=== PATIENT | male | born 1975 | race Caucasian/White ===

== ENCOUNTER → 2016-08-25 | Outpatient (CLI) | payer MEDICARE, MEDICAID ==
[~2016-08-25] MED LIST: ALBU17IN INH; CETI10TA PO; DEPA1TAB3 PO; DEPA250T32 PO; EFFE75CA75 PO; MONT10TA2 PO; NAPR500T2 PO; ROPI1TAB PO; VENL37TA PO
== END ==
LOC: M LAB 12:32
PROVIDERS: ATTEND Nurse Practitioner Family
DX: Z02.89 Encounter for other administrative examinations (principal)

== ENCOUNTER 2016-10-19 21:34 | Emergency (ER) | payer MEDICARE, MEDICAID ==
[~2016-10-19] VITALS: Ht 175.3 cm; Wt 109.1 kg
[~2016-10-19 21:34] MED LIST changes: -NAPR500T2 PO; +NAPR500T3 PO
[2016-10-19] MEDS ORDERED: IPRATROPIUM 0.5MG/ALBUTEROL 2.5MG INH SOL UD 3ML (DUONEB)(J7620) NEB ONE (22:00)
[2016-10-19] MEDS ORDERED: methylPREDNISolone INJ 125 MG/2 ML VIAL (J2930) IV ONE (22:00)
[2016-10-19] MEDS ORDERED: diphenhydrAMINE INJ 50MG/ML VIAL (J1200) IV ONE (22:00)
[2016-10-19] MEDS ORDERED: FAMOTIDINE IV BAG 20 MG in APPROPRIATE DILUENT 1 EA IV ONE (22:00)
[2016-10-19 23:36] VITALS: BP 140/76
[2016-10-19] MEDS ORDERED: PEPC1TAB4 PO (23:43)
[2016-10-19] MEDS ORDERED: PRED20TA PO (23:43)
--- NOTE | 2016-10-20 06:00 | ECGEPIP ---
Stationary ECG Study [facility] - ED Test Date: 2016-10-19 Pat Name: LINN MEDEL Department: Room: - Gender: M [employer] Supervisor: : 1975 Requested By: KASH Serrano PA-C Order Number: [id number] Reading MD: Adán De Luna Measurements Intervals [place] Rate: 90 P: 21 OK: 160 QRS: -19 QRSD: 85 T: 29 QT: 346 QTc: 424 Interpretive Statements SINUS RHYTHM Electronically Signed On 10-20-2016 6:00:14 EDT by Adán De Luna
--- NOTE | 2016-10-20 08:07 | REP ---
PA and lateral chest: Comparison is 11/18/2014. Lung gomez are clear. Cardiac size is upper normal. The kristine, mediastinum, and bony thorax are unremarkable. There is no interval change. Impression: Essentially negative PA and lateral chest. Signed by Julio César Hammond MD 10/20/2016 07:57 A
== END 2016-10-19 23:53 | disposition home or self-care (01) ==
LOC: M ED 21:34
DX: R06.02 Shortness of breath (principal); R05 Cough; T78.40XA Allergy, unspecified, initial encounter; X58.XXXA Exposure to other specified factors, initial encounter; Y92.009 Unspecified place in unspecified non-institutional (private) residence as the place of occurrence of the external cause; Z77.120 Contact with and (suspected) exposure to mold (toxic); J45.909 Unspecified asthma, uncomplicated; F32.9 Major depressive disorder, single episode, unspecified; F41.9 Anxiety disorder, unspecified; Z88.0 Allergy status to penicillin; Z88.8 Allergy status to other drugs, medicaments and biological substances; Z79.899 Other long term (current) drug therapy
CPT/HCPCS: 71020; 93005; 94640; 96374; 96375; 99283; J1200; J2930

== ENCOUNTER 2016-12-13 19:29 | Emergency (ER) | payer MEDICARE, MEDICAID ==
[~2016-12-13] VITALS: Ht 175.3 cm; Wt 109.0 kg
[~2016-12-13 19:29] MED LIST changes: +PEPC1TAB4 PO; +PRED20TA PO
[2016-12-13] MEDS ORDERED: FLUT1SPR2 INH (19:45)
[2016-12-13] MEDS ORDERED: DICY20TA11 PO (19:45)
[2016-12-13] MEDS ORDERED: AZIT-12 PO (19:45)
[2016-12-13] MEDS ORDERED: Compazine PO (19:45)
[2016-12-13] MEDS ORDERED: PRIL20CA9 PO (19:45)
[2016-12-13] MEDS ORDERED: SUMA100T2 PO (19:45)
[2016-12-13] MEDS ORDERED: VITA1CAP40 (19:45)
[2016-12-13] MEDS ORDERED: BUTACAP78 PO (19:45)
[2016-12-13] MEDS ORDERED: ONDANSETRON 4MG/2ML VIAL (J2405) IV ONE (21:00)
[2016-12-13] MEDS ORDERED: KETOROLAC 30 MG/ML VIAL (J1885) IV ONE (21:00)
[2016-12-13] MEDS ORDERED: NS 1,000 ML IV ONE (21:00)
[2016-12-13 21:46] LABS: BASO % 0.3 % (0.0-1.0); EOS # 0.1 10^3/uL (0.0-0.50); EOS % 0.4 % (0.0-3.0); IMMATURE GRANULOCYTE % 0.6 % (0-0); LYMPH # 0.9 10^3/uL (1.5-4.5); LYMPH % 6.6 % (24.0-44.0); MEAN CORPUSCULAR HEMOGLOBIN 29.3 pg (27.0-33.0); MEAN CORPUSCULAR HGB CONC 34.3 g/dl (32.0-36.5); MEAN CORPUSCULAR VOLUME 85.4 fl (80.0-96.0); MONO # 0.4 10^3/uL (0.0-0.8); MONO % 3.2 % (0.0-5.0); NEUTROPHILS # 12.1 10^3/uL (1.8-7.7); NEUTROPHILS % 88.9 % (36.0-66.0); PLATELET COUNT, AUTOMATED 225 10^3/uL (150-450); RED CELL DISTRIBUTION WIDTH 12.9 % (11.5-14.5); WHITE BLOOD COUNT 13.6 10^3/uL (4.0-10.0)
[2016-12-13 22:07] LABS: ALBUMIN 3.9 GM/DL (3.2-5.2); ALBUMIN/GLOBULIN RATIO 1.18 (1.00-1.93); ALKALINE PHOSPHATASE 88 U/L (45-117); ALT/SGPT 29 U/L (12-78); AMYLASE 33 U/L (25-115); ANION GAP 6 MEQ/L (8-16); AST/SGOT 15 U/L (15-37); BILIRUBIN,DIRECT 0.2 MG/DL (0.0-0.2); BILIRUBIN,TOTAL 0.6 MG/DL (0.2-1.0); BLOOD UREA NITROGEN 12 MG/DL (7-18); CALCIUM LEVEL 8.6 MG/DL (8.5-10.1); CARBON DIOXIDE LEVEL 29 MEQ/L (21-32); CHLORIDE LEVEL 106 MEQ/L (98-107); CREATININE FOR GFR 0.89 MG/DL (0.70-1.30); GLOMERULAR FILTRATION RATE > 60.0 (>60); GLUCOSE, FASTING 120 MG/DL (70-105); POTASSIUM SERUM 3.9 MEQ/L (3.5-5.1); SODIUM LEVEL 141 MEQ/L (136-145); TOTAL PROTEIN 7.2 GM/DL (6.4-8.2)
[2016-12-13 22:41] VITALS: BP 143/79
[2016-12-13] MEDS ORDERED: ZOFR20TA PO (22:54)
--- NOTE | 2016-12-14 08:04 | REP ---
The kilos series series including PA chest and supine upright abdomen: PA chest: Comparison is a 2016. Lung gomez are clear. Cardiac size is enlarged. The kristine, mediastinum, and bony thorax are unremarkable. There is no free subdiaphragmatic air. Impression: Cardiomegaly. Otherwise, negative PA chest. Abdomen, supine and upright views: There are no comparisons. The bowel gas pattern is normal. There are pelvic calcifications, likely phleboliths. The skeletal structures and soft tissues are unremarkable. Impression: Normal bowel gas pattern. Signed by Julio César Hammond MD 12/14/2016 07:55 A
== END 2016-12-13 23:10 | disposition home or self-care (01) ==
LOC: M ED 19:29
DX: K29.70 Gastritis, unspecified, without bleeding (principal); J45.909 Unspecified asthma, uncomplicated; Z79.51 Long term (current) use of inhaled steroids; Z79.899 Other long term (current) drug therapy; Z88.8 Allergy status to other drugs, medicaments and biological substances; Z88.0 Allergy status to penicillin; Z87.891 Personal history of nicotine dependence
CPT/HCPCS: 74022; 80048; 80076; 82150; 83690; 85025; 96361; 96374; 96375; 99283; J1885; J2405

== ENCOUNTER 2017-11-15 05:45 | Emergency (ER) | payer MEDICARE, MEDICAID ==
[2017-11-15] MEDS: NS 1,000 ML IV (08:09)
[2017-11-15] MEDS: METOCLOPRAMIDE INJ 10MG/2ML VIAL (J2765) IV (08:09)
[2017-11-15] MEDS: KETOROLAC 30 MG/ML VIAL (J1885) IV (08:09)
[2017-11-15 08:18] LABS: BASO % 0.2 % (0.0-1.0); EOS # 0.1 10^3/uL (0.0-0.50); EOS % 0.6 % (0.0-3.0); HEMATOCRIT 44.7 % (42.0-52.0); HEMOGLOBIN 15.4 g/dl (13.5-17.5); IMMATURE GRANULOCYTE % 0.5 % (0-3.0); LYMPH # 0.4 10^3/uL (1.5-4.5); LYMPH % 5.2 % (24.0-44.0); MEAN CORPUSCULAR HEMOGLOBIN 29.7 pg (27.0-33.0); MEAN CORPUSCULAR HGB CONC 34.5 g/dl (32.0-36.5); MEAN CORPUSCULAR VOLUME 86.1 fl (80.0-96.0); MONO # 0.4 10^3/uL (0.0-0.8); MONO % 5.3 % (0.0-5.0); NEUTROPHILS # 7.1 10^3/uL (1.8-7.7); NEUTROPHILS % 88.2 % (36.0-66.0); PLATELET COUNT, AUTOMATED 169 10^3/uL (150-450); RED BLOOD COUNT 5.19 10^6/uL (4.30-6.10); RED CELL DISTRIBUTION WIDTH 12.5 % (11.5-14.5); WHITE BLOOD COUNT 8.1 10^3/uL (4.0-10.0)
[2017-11-15 08:45] LABS: CPK CREATINE PHOSPHOKINASE 57 U/L (39-308)
[2017-11-15 09:17] LABS: ERYTHROCYTE SEDIMENTATION RATE 9 mm/hr (0-15)
[2017-11-15 10:17] LABS: ANION GAP 9 MEQ/L (8-16); BLOOD UREA NITROGEN 10 MG/DL (7-18); CALCIUM LEVEL 8.5 MG/DL (8.5-10.1); CARBON DIOXIDE LEVEL 25 MEQ/L (21-32); CHLORIDE LEVEL 106 MEQ/L (98-107); CREATININE FOR GFR 1.05 MG/DL (0.70-1.30); GLOMERULAR FILTRATION RATE > 60.0 (>60); GLUCOSE, FASTING 110 MG/DL (70-100); POTASSIUM SERUM 3.8 MEQ/L (3.5-5.1); SODIUM LEVEL 140 MEQ/L (136-145)
== END 2017-11-15 11:02 | disposition home or self-care (01) ==
LOC: M ED 05:45
DX: M25.50 Pain in unspecified joint (principal); R51 Headache; T50.B95A Adverse effect of other viral vaccines, initial encounter; G43.909 Migraine, unspecified, not intractable, without status migrainosus; K58.9 Irritable bowel syndrome, unspecified; J45.909 Unspecified asthma, uncomplicated; F41.9 Anxiety disorder, unspecified; F32.9 Major depressive disorder, single episode, unspecified; Z88.0 Allergy status to penicillin; Z88.5 Allergy status to narcotic agent; Z79.899 Other long term (current) drug therapy
CPT/HCPCS: J1885

== ENCOUNTER → 2017-12-22 | Outpatient (CLI) | payer MEDICARE, MEDICAID | LOC: M WUC 12:06 | DX: M19.012 Primary osteoarthritis, left shoulder (principal); M25.512 Pain in left shoulder | CPT/HCPCS: 73030 ==

== ENCOUNTER → 2018-05-24 | Outpatient (CLI) | payer MEDICARE, MEDICAID ==
[~2018-05-24] MED LIST changes: +ACET-683 PO; +AZIT-12 PO; +BUTACAP78 PO; +Compazine PO; +DICY20TA11 PO; +EFFE75CA2 PO; -EFFE75CA75 PO; +FLUT1SPR2 INH; +IBUP-1022 PO; +NAPR-885 PO; -NAPR500T3 PO; -PEPC1TAB4 PO; +PEPC1TAB5 PO; +PRIL20CA9 PO; +SUMA100T2 PO; +VITA50005; +ZOFR4TAB16 PO
[2018-05-24 10:24] LABS: BASO % 0.6 % (0.0-1.0); EOS # 0.3 10^3/uL (0.0-0.50); EOS % 4.7 % (0.0-3.0); HEMATOCRIT 45.9 % (42.0-52.0); HEMOGLOBIN 15.5 g/dl (13.5-17.5); LYMPH # 1.5 10^3/uL (1.5-4.5); LYMPH % 21.6 % (24.0-44.0); MEAN CORPUSCULAR HEMOGLOBIN 29.5 pg (27.0-33.0); MEAN CORPUSCULAR HGB CONC 33.8 g/dl (32.0-36.5); MEAN CORPUSCULAR VOLUME 87.3 fl (80.0-96.0); MONO # 0.4 10^3/uL (0.0-0.8); MONO % 5.5 % (0.0-5.0); NEUTROPHILS # 4.6 10^3/uL (1.8-7.7); NEUTROPHILS % 67.5 % (36.0-66.0); PLATELET COUNT, AUTOMATED 211 10^3/uL (150-450); RED BLOOD COUNT 5.26 10^6/uL (4.30-6.10); WHITE BLOOD COUNT 6.9 10^3/uL (4.0-10.0)
[2018-05-24 11:19] LABS: ALBUMIN 3.8 GM/DL (3.2-5.2); ALT/SGPT 44 U/L (12-78); BILIRUBIN,TOTAL 0.5 MG/DL (0.2-1.0); BLOOD UREA NITROGEN 18 MG/DL (7-18); CALCIUM LEVEL 8.6 MG/DL (8.5-10.1); CARBON DIOXIDE LEVEL 30 MEQ/L (21-32); CHLORIDE LEVEL 107 MEQ/L (98-107); CHOLESTEROL LEVEL 157 MG/DL (<200); CHOLESTEROL RISK RATIO 3.413 (<5); CREATININE FOR GFR 0.85 MG/DL (0.70-1.30); FREE T4 1.02 NG/DL (0.76-1.46); GLOMERULAR FILTRATION RATE > 60.0 (>60); GLUCOSE, FASTING 93 MG/DL (70-100); HDL CHOLESTEROL 46 MG/DL (>40); LDL CHOLESTEROL 86 MG/DL (<100); NON-HDL-C 111 MG/DL; POTASSIUM SERUM 4.4 MEQ/L (3.5-5.1); SODIUM LEVEL 141 MEQ/L (136-145); TOTAL PROTEIN 7.3 GM/DL (6.4-8.2); TRIGLYCERIDES LEVEL 124 MG/DL (<150)
== END ==
LOC: M LAB 09:44
PROVIDERS: ATTEND Family Medicine
DX: Z13.220 Encounter for screening for lipoid disorders (principal); Z13.21 Encounter for screening for nutritional disorder; Z13.29 Encounter for screening for other suspected endocrine disorder; M79.604 Pain in right leg

== ENCOUNTER → 2019-07-10 | Outpatient (CLI) | payer MEDICARE, MEDICAID ==
[~2019-07-10] MED LIST changes: -MONT10TA2 PO; +MONT10TA4 PO; -ROPI1TAB PO; +ROPI1TAB3 PO
== END ==
LOC: M LABSMTC 12:45
PROVIDERS: ATTEND Family Medicine
DX: Z11.59 Encounter for screening for other viral diseases (principal); Z20.828 Contact with and (suspected) exposure to other viral communicable diseases

== ENCOUNTER → 2019-08-16 | Outpatient (REF) | payer MEDICARE, MEDICAID ==
[2019-08-16 13:36] LABS: BASO # 0.1 10^3/uL (0.0-0.2); BASO % 0.7 % (0.0-1.0); EOS # 0.5 10^3/uL (0.0-0.5); EOS % 5.7 % (0.0-3.0); HEMATOCRIT 43.5 % (42.0-52.0); HEMOGLOBIN 14.9 g/dl (13.5-17.5); LYMPH # 1.8 10^3/uL (1.5-5.0); LYMPH % 21.4 % (24.0-44.0); MEAN CORPUSCULAR HEMOGLOBIN 29.7 pg (27.0-33.0); MEAN CORPUSCULAR HGB CONC 34.3 g/dl (32.0-36.5); MEAN CORPUSCULAR VOLUME 86.7 fl (80.0-96.0); MONO # 0.5 10^3/uL (0.0-0.8); MONO % 6.1 % (0.0-5.0); NEUTROPHILS # 5.5 10^3/uL (1.5-8.5); NEUTROPHILS % 65.6 % (36.0-66.0); PLATELET COUNT, AUTOMATED 211 10^3/uL (150-450); RED BLOOD COUNT 5.02 10^6/uL (4.30-6.10); WHITE BLOOD COUNT 8.4 10^3/uL (4.0-10.0)
[2019-08-16 14:17] LABS: ALBUMIN 3.8 GM/DL (3.2-5.2); ALT/SGPT 58 U/L (12-78); BILIRUBIN,TOTAL 0.5 MG/DL (0.2-1.0); BLOOD UREA NITROGEN 17 MG/DL (7-18); CARBON DIOXIDE LEVEL 26 MEQ/L (21-32); CHLORIDE LEVEL 108 MEQ/L (98-107); CHOLESTEROL LEVEL 189 MG/DL (<200); FREE T4 1.02 NG/DL (0.76-1.46); GLOMERULAR FILTRATION RATE > 60.0 (>60); GLUCOSE, FASTING 103 MG/DL (70-100); HDL CHOLESTEROL 50 MG/DL (>40); LDL CHOLESTEROL 116 MG/DL (<100); NON-HDL-C 139 MG/DL; POTASSIUM SERUM 4.1 MEQ/L (3.5-5.1); SODIUM LEVEL 140 MEQ/L (136-145); TOTAL PROTEIN 7.3 GM/DL (6.4-8.2); TRIGLYCERIDES LEVEL 115 MG/DL (<150)
[2019-08-16 14:18] LABS: TOTAL 25(OH) VITAMIN D 27.5 NG/ML (30.0-100.0)
== END ==
LOC: M LAB REF 12:43
PROVIDERS: ATTEND Physician Assistant
DX: Z00.01 Encounter for general adult medical examination with abnormal findings (principal); J30.2 Other seasonal allergic rhinitis; J45.20 Mild intermittent asthma, uncomplicated; F41.8 Other specified anxiety disorders; R06.83 Snoring; R53.83 Other fatigue; G25.81 Restless legs syndrome; Z68.37 Body mass index [BMI] 37.0-37.9, adult; E66.09 Other obesity due to excess calories

== ENCOUNTER 2019-10-01 15:10 | Emergency (ER) | payer MEDICARE, MEDICAID ==
[2019-10-28 14:13] LABS: BLOOD UREA NITROGEN 11 MG/DL (7-18); CALCIUM LEVEL 8.8 MG/DL (8.5-10.1); CARBON DIOXIDE LEVEL 26 MEQ/L (21-32); CHLORIDE LEVEL 110 MEQ/L (98-107); CREATININE FOR GFR 0.99 MG/DL (0.70-1.30); GLOMERULAR FILTRATION RATE > 60.0 (>60); GLUCOSE, FASTING 89 MG/DL (70-100); POTASSIUM SERUM 4.3 MEQ/L (3.5-5.1); SODIUM LEVEL 142 MEQ/L (136-145)
[2019-11-04 10:51] LABS: BASO % 0.5 % (0.0-1.0); EOS # 0.4 10^3/uL (0.0-0.5); EOS % 4.3 % (0.0-3.0); HEMATOCRIT 43.8 % (42.0-52.0); HEMOGLOBIN 14.9 g/dl (13.5-17.5); LYMPH # 1.3 10^3/uL (1.5-5.0); MEAN CORPUSCULAR HEMOGLOBIN 29.4 pg (27.0-33.0); MEAN CORPUSCULAR VOLUME 86.4 fl (80.0-96.0); MONO # 0.4 10^3/uL (0.0-0.8); MONO % 4.4 % (0.0-5.0); NEUTROPHILS # 6.5 10^3/uL (1.5-8.5); NEUTROPHILS % 75.3 % (36.0-66.0); PLATELET COUNT, AUTOMATED 189 10^3/uL (150-450); RED BLOOD COUNT 5.07 10^6/uL (4.30-6.10); WHITE BLOOD COUNT 8.6 10^3/uL (4.0-10.0)
--- NOTE | 2019-11-23 15:35 | REP ---
CT OF THE HEAD: HISTORY: Syncope and headache. TECHNIQUE: Axial noncontrast images from the skull base to the vertex with coronal reformations. FINDINGS: The ventricles, sulci and cisterns are symmetric and normal. Deng-white differentiation is maintained. No acute intracranial hemorrhage, mass or mass effect. No extra-axial fluid collection. The calvarium is intact. The paranasal sinuses and mastoid air cells are clear. IMPRESSION: Negative noncontrast head CT. No evidence for acute intracranial hemorrhage or pathology/trauma. MTDD
--- NOTE | 2019-11-23 16:05 | ECGEPIP ---
SINUS BRADYCARDIA BORDERLINE ECG LAD NONSPECIFIC ST & T CHANGE NO PRIOR DUE TO DOWNTIME SEE SCANNED DOWNTIME REPORT MTDD
[2019-12-12] MEDS ORDERED: ZALE10CA PO (13:40)
[2019-12-12] MEDS ORDERED: VITA1CHW7 PO (13:40)
[2019-12-12] MEDS ORDERED: sonata (13:40)
[2019-12-12] MEDS ORDERED: METH4PACK PO (13:40)
[2019-12-12] MEDS ORDERED: MECL12.589 PO (13:40)
[2019-12-12] MEDS ORDERED: VENTAER INH (13:40)
[2019-12-12] MEDS ORDERED: PANT40TA29 PO (13:40)
[2019-12-12] MEDS ORDERED: MOBI4TAB PO (13:40)
[2019-12-12] MEDS ORDERED: FLON1SPR (13:40)
== END 2019-10-01 15:46 | disposition home or self-care (01) ==
LOC: M ED 15:10
DX: I95.1 Orthostatic hypotension (principal); Z98.890 Other specified postprocedural states; Z88.0 Allergy status to penicillin; Z88.5 Allergy status to narcotic agent; Z79.899 Other long term (current) drug therapy; Z87.891 Personal history of nicotine dependence

== ENCOUNTER → 2019-10-23 | Outpatient (CLI) | payer MEDICARE, MEDICAID ==
[~2019-10-23] MED LIST changes: +E-Z-GAS II EFFERVESCENT PACKET (SODIUM BICARB./CITRIC ACID/SIMETHICONE) As Ordered ONE; +E-Z-HD 98% w/w 340GM SUSP BTL As Ordered ONE; +E-Z-PAQUE 96% w/w SUSP 176GM BTL As Ordered ONE; +FLON1SPR; +MECL12.589 PO; +METH4PACK PO; +MOBI4TAB PO; +PANT40TA29 PO; +VENTAER INH; +VITA1CHW7 PO; +ZALE10CA PO; +sonata
--- NOTE | 2019-11-29 09:50 | REP ---
AIR CONTRAST ESOPHAGRAM The procedure was performed under the direct supervision of Dr. Souza. The images were reviewed with Dr. Souza. A single view PA chest x-ray is submitted as a ammonium nitrate neutralizer film. The superior mediastinal structures are midline. The heart size is within normal limits. The lungs are clear. Liquid barium and gas-producing granules are given in the erect position, as well as liquid barium in the prone oblique position in order to perform a double-contrast esophagram examination. The oral and pharyngeal states of deglutition are unremarkable. Esophageal transport is prompt and efficient and there is no esophagitis, stricture, or mucosal ring. There is a sliding type hiatal hernia. Gastroesophageal reflux is not demonstrated on this examination. IMPRESSION: There is a sliding type hiatal hernia. Otherwise, unremarkable double-contrast esophagram examination. 0.7 minutes of fluoroscopy time was utilized for this procedure. [facility]
== END ==
LOC: M RAD 08:30
PROVIDERS: ATTEND Surgery
DX: R13.10 Dysphagia, unspecified (principal); K44.9 Diaphragmatic hernia without obstruction or gangrene

== ENCOUNTER 2019-12-03 10:27 | Outpatient (RCR) | payer MEDICARE, MEDICAID ==
[~2019-12-03 10:27] MED LIST changes: -E-Z-GAS II EFFERVESCENT PACKET (SODIUM BICARB./CITRIC ACID/SIMETHICONE) As Ordered ONE; -E-Z-HD 98% w/w 340GM SUSP BTL As Ordered ONE; -E-Z-PAQUE 96% w/w SUSP 176GM BTL As Ordered ONE; -FLON1SPR; -MECL12.589 PO; -METH4PACK PO; -MOBI4TAB PO; -PANT40TA29 PO; -VENTAER INH; -VITA1CHW7 PO; -ZALE10CA PO; -sonata
[2019-12-12] MEDS ORDERED: MECL12.589 PO (13:40)
[2019-12-12] MEDS ORDERED: METH4PACK PO (13:40)
[2019-12-12] MEDS ORDERED: ZALE10CA PO (13:40)
[2019-12-12] MEDS ORDERED: MOBI4TAB PO (13:40)
[2019-12-12] MEDS ORDERED: FLON1SPR (13:40)
[2019-12-12] MEDS ORDERED: PANT40TA29 PO (13:40)
[2019-12-12] MEDS ORDERED: sonata (13:40)
[2019-12-12] MEDS ORDERED: VENTAER INH (13:40)
[2019-12-12] MEDS ORDERED: VITA1CHW7 PO (13:40)
== END 2019-12-05 | disposition home or self-care (01) ==
LOC: M PT 10:27
PROVIDERS: ATTEND Physician Assistant
DX: M76.31 Iliotibial band syndrome, right leg (principal)

== ENCOUNTER → 2019-12-05 | Outpatient (REF) | payer MEDICARE, MEDICAID ==
[~2019-12-05] MED LIST changes: +FLON1SPR; +MECL12.589 PO; +METH4PACK PO; +MOBI4TAB PO; +PANT40TA29 PO; +VENTAER INH; +VITA1CHW7 PO; +ZALE10CA PO; +sonata
[2019-12-05 14:17] LABS: ALBUMIN 3.9 GM/DL (3.2-5.2); ALT/SGPT 57 U/L (12-78); BILIRUBIN,TOTAL 0.5 MG/DL (0.2-1.0); BLOOD UREA NITROGEN 16 MG/DL (7-18); CALCIUM LEVEL 9.3 MG/DL (8.5-10.1); CARBON DIOXIDE LEVEL 25 MEQ/L (21-32); CHLORIDE LEVEL 106 MEQ/L (98-107); CHOLESTEROL LEVEL 179 MG/DL (<200); CHOLESTEROL RISK RATIO 4.068 (<5); CREATININE FOR GFR 1.07 MG/DL (0.70-1.30); GLOMERULAR FILTRATION RATE > 60.0 (>60); GLUCOSE, FASTING 99 MG/DL (70-100); HDL CHOLESTEROL 44 MG/DL (>40); LDL CHOLESTEROL 99 MG/DL (<100); NON-HDL-C 135 MG/DL; POTASSIUM SERUM 4.4 MEQ/L (3.5-5.1); SODIUM LEVEL 139 MEQ/L (136-145); TOTAL PROTEIN 7.6 GM/DL (6.4-8.2); TRIGLYCERIDES LEVEL 180 MG/DL (<150)
[2019-12-05 15:17] LABS: HEMOGLOBIN A1c 5.2 %
== END ==
LOC: M LAB REF 12:39
PROVIDERS: ATTEND Physician Assistant
DX: R73.01 Impaired fasting glucose (principal); R07.9 Chest pain, unspecified; K64.4 Residual hemorrhoidal skin tags; E78.00 Pure hypercholesterolemia, unspecified; Z91.14 Patient's other noncompliance with medication regimen

== ENCOUNTER → 2019-12-15 | Outpatient (CLI) | payer MEDICARE, MEDICAID | LOC: M LABSMTC 09:58 | PROVIDERS: ATTEND Anesthesiology | DX: Z01.812 Encounter for preprocedural laboratory examination (principal); Z20.828 Contact with and (suspected) exposure to other viral communicable diseases | CPT/HCPCS: C9803; U0003 ==

== ENCOUNTER 2019-12-20 12:06 | Day surgery (SDC) | payer MEDICARE, MEDICAID ==
[~2019-12-20] VITALS: Ht 175.3 cm; Wt 116.3 kg
[~2019-12-20 12:06] MED LIST changes: +NS 1,000 ML IV ONE
[2019-12-20] MEDS ORDERED: ALBUTEROL SULFATE 2.5 MG/0.5 ML INH NEB SOLN As Ordered ONE (12:50)
[2019-12-20] MEDS ORDERED: ALBUTEROL SULFATE 2.5 MG/0.5 ML INH NEB SOLN INH ONE (13:00)
[2019-12-20] MEDS ORDERED: propofoL 200 MG/20 ML VIAL As Ordered ONE (13:45)
[2019-12-20] MEDS ORDERED: LIDOCAINE 2% 100MG/5ML SDV (FOR ANES.) As Ordered ONE (13:45)
[2019-12-20] MEDS ORDERED: fentaNYL 100 MCG/2 ML INJECTION (J3010) As Ordered ONE (13:47)
--- NOTE | 2019-12-20 14:01 | ROOR ---
Patient Name: Jose Rodrigues Procedure Date: 12/20/2019 1:43 PM Date of : 1975 Age: 44 Room: [facility] Gender: Male Note Status: Finalized Procedure: Upper GI endoscopy Indications: Dysphagia Providers: Dex Ireland Jr, MD Referring MD: MARI Reyez Requesting Provider: Medicines: Propofol per Anesthesia Complications: No immediate complications. Procedure: Pre-Anesthesia Assessment: - Prior to the procedure, a History and Physical was performed, and patient medications and allergies were reviewed. The patient is competent. The risks and benefits of the procedure and the sedation options and risks were discussed with the patient. All questions were answered and informed consent was obtained. Patient identification and proposed procedure were verified by the physician and the nurse in the pre-procedure area and in the procedure room. Mental Status Examination: alert and oriented. Airway Examination: normal oropharyngeal airway and neck mobility. Respiratory Examination: clear to auscultation. CV Examination: normal. ASA Grade Assessment: II - A patient with mild systemic disease. After reviewing the risks and benefits, the patient was deemed in satisfactory condition to undergo the procedure. The anesthesia plan was to use moderate sedation / analgesia (conscious sedation). Immediately prior to administration of medications, the patient was re-assessed for adequacy to receive sedatives. The heart rate, respiratory rate, oxygen saturations, blood pressure, adequacy of pulmonary ventilation, and response to care were monitored throughout the procedure. The physical status of the patient was re-assessed after the procedure. The Endoscope was introduced through the mouth, and advanced to the second part of duodenum. The upper GI endoscopy was accomplished without difficulty. The patient tolerated the procedure well. Findings: The upper third of the esophagus, middle third of the esophagus and lower third of the esophagus were normal. Non-severe esophagitis with no bleeding was found at the gastroesophageal junction. Biopsies were taken with a cold forceps for histology. The duodenal bulb, first portion of the duodenum and second portion of the duodenum were normal. The cardia, gastric fundus, gastric body, gastric antrum, prepyloric region of the stomach and pylorus were normal. Impression: - Normal upper third of esophagus, middle third of esophagus and lower third of esophagus. - Non-severe reflux esophagitis. Biopsied. - Normal duodenal bulb, first portion of the duodenum and second portion of the duodenum. - Normal cardia, gastric fundus, gastric body, antrum, prepyloric region of the stomach and pylorus. Recommendation: - Discharge patient to home (ambulatory). - Return to my office in 2 weeks. Dex Ireland MD Dex Ireland Jr, MD 12/20/2019 2:01:06 PM Electronically signed by Dex Ireland Jr, MD Number of Addenda: 0 Note Initiated On: 12/20/2019 1:43 PM Estimated Blood Loss: Estimated blood loss: none.
[2019-12-20 14:15] VITALS: BP 133/76
== END 2019-12-20 15:10 | disposition home or self-care (01) ==
LOC: M OPP 12:06
PROVIDERS: ATTEND Surgery
DX: K21.00 Gastro-esophageal reflux disease with esophagitis, without bleeding (principal); R13.10 Dysphagia, unspecified; Z79.899 Other long term (current) drug therapy; Z88.0 Allergy status to penicillin; Z88.5 Allergy status to narcotic agent; Z87.891 Personal history of nicotine dependence
CPT/HCPCS: 43239; 88305; J3010

== ENCOUNTER 2020-01-04 11:15 | Outpatient (RCR) | payer MEDICARE, MEDICAID ==
[~2020-01-04 11:15] MED LIST changes: -NS 1,000 ML IV ONE
== END 2020-01-05 ==
LOC: M PT 11:15
PROVIDERS: ATTEND Physician Assistant
DX: Z51.89 Encounter for other specified aftercare (principal); M76.31 Iliotibial band syndrome, right leg

== ENCOUNTER → 2020-07-16 | Outpatient (REF) | payer MEDICARE, MEDICAID ==
[~2020-07-16] MED LIST changes: +MECL-136 PO; -MECL12.589 PO; +MONT10TA10 PO; -MONT10TA4 PO
[2020-07-16 16:19] LABS: BASO # 0.1 10^3/uL (0.0-0.2); BASO % 0.7 % (0.0-1.0); EOS # 0.3 10^3/uL (0.0-0.5); EOS % 3.6 % (0.0-3.0); HEMATOCRIT 44.2 % (42.0-52.0); HEMOGLOBIN 14.8 g/dl (13.5-17.5); LYMPH # 1.4 10^3/uL (1.5-5.0); LYMPH % 18.9 % (24.0-44.0); MEAN CORPUSCULAR HGB CONC 33.5 g/dl (32.0-36.5); MEAN CORPUSCULAR VOLUME 86.5 fl (80.0-96.0); MONO # 0.4 10^3/uL (0.0-0.8); MONO % 4.9 % (2.0-8.0); NEUTROPHILS # 5.4 10^3/uL (1.5-8.5); NEUTROPHILS % 71.4 % (36.0-66.0); PLATELET COUNT, AUTOMATED 195 10^3/uL (150-450); RED BLOOD COUNT 5.11 10^6/uL (4.30-6.10); WHITE BLOOD COUNT 7.5 10^3/uL (4.0-10.0)
[2020-07-16 16:52] LABS: ALBUMIN 3.9 GM/DL (3.2-5.2); ALT/SGPT 85 U/L (12-78); BILIRUBIN,TOTAL 0.4 MG/DL (0.2-1.0); BLOOD UREA NITROGEN 13 MG/DL (7-18); CARBON DIOXIDE LEVEL 28 MEQ/L (21-32); CHLORIDE LEVEL 109 MEQ/L (98-107); CHOLESTEROL LEVEL 182 MG/DL (<200); CHOLESTEROL RISK RATIO 3.872 (<5); CREATININE FOR GFR 0.95 MG/DL (0.70-1.30); FREE T4 0.94 NG/DL (0.76-1.46); GLOMERULAR FILTRATION RATE > 60.0 (>60); GLUCOSE, FASTING 98 MG/DL (70-100); HDL CHOLESTEROL 47 MG/DL (>40); LDL CHOLESTEROL 98 MG/DL (<100); NON-HDL-C 135 MG/DL; POTASSIUM SERUM 4.3 MEQ/L (3.5-5.1); SODIUM LEVEL 142 MEQ/L (136-145); TOTAL PROTEIN 7.1 GM/DL (6.4-8.2); TRIGLYCERIDES LEVEL 186 MG/DL (<150)
[2020-07-16 16:55] LABS: TOTAL 25(OH) VITAMIN D 19.8 NG/ML (30.0-100.0)
[2020-07-16 17:05] LABS: HEMOGLOBIN A1c 5.6 %
== END ==
LOC: M LAB REF 15:48
PROVIDERS: ATTEND Physician Assistant
DX: E78.00 Pure hypercholesterolemia, unspecified (principal); E55.9 Vitamin D deficiency, unspecified; R53.83 Other fatigue; N52.9 Male erectile dysfunction, unspecified; E66.9 Obesity, unspecified

== ENCOUNTER → 2020-10-20 | Outpatient (CLI) | payer MEDICARE, MEDICAID ==
--- NOTE | 2020-10-20 11:34 | REP ---
INDICATION: UNSPECIFIED ASTHMA, LABS 1ST, XRY 2ND. COMPARISON: Multiple the latest prior frontal view the chest of 12/13/2016 TECHNIQUE: PA and lateral FINDINGS: There is cardiomegaly status quo. Lung gomez are clear. No acute patchy parenchymal opacities or pleural effusions have developed. The osseous structures are within normal limits. IMPRESSION: Cardiomegaly without evidence of acute cardiopulmonary disease. <Electronically signed by Frantz López > 10/20/20 [id number]
== END ==
LOC: M RAD 10:00
PROVIDERS: ATTEND Nurse Practitioner Adult Health
DX: I51.7 Cardiomegaly (principal); J45.909 Unspecified asthma, uncomplicated

== ENCOUNTER → 2020-10-20 | Outpatient (CLI) | payer MEDICARE, MEDICAID ==
[2020-10-20 11:29] LABS: FOLLICLE STIMULATING HORMONE 0.7 mIU/mL (1.4-18.1); LUTEINIZING HORMONE 2.1 mIU/mL (1.5-9.3); PROLACTIN 3.6 NG/ML (2.1-17.7)
[2020-10-21 18:09] LABS: SEX HORMONE BINDING GLOBULIN 27.7 nmol/L (16.5-55.9); TESTOSTERONE FREE (DIRECT) 6.2 pg/mL (6.8-21.5)
== END ==
LOC: M LAB 09:56
PROVIDERS: ATTEND Urology
DX: R79.89 Other specified abnormal findings of blood chemistry (principal); N52.9 Male erectile dysfunction, unspecified

== ENCOUNTER → 2020-10-30 | Outpatient (CLI) | payer MEDICARE, MEDICAID ==
--- NOTE | 2020-11-02 19:45 | SLEEPCENT ---
DATE: 10/30/2020 ORDERED BY: Nancy Madera NP Nocturnal polysomnography was performed for evaluation of sleep physiology in this patient with a history of excessive somnolence and nonrestorative sleep. Seven hours and 6 minutes of data were reviewed. There were 334 minutes of sleep identified. Sleep latency was prolonged at 62.5 minutes. REM latency was normal at 50.5 minutes. Sleep architecture was fair with an overall sleep efficiency of 79.2%. There were four REM cycles noted. The electrocardiogram showed a sinus rhythm with an average heart rate of 60 beats per minute. EEG showed normal waveforms for wake and sleep. There were 47 respiratory events identified of 10 seconds in duration or greater for an apnea-hypopnea index of 8.4. The events were obstructive, not exclusive to sleep stage nor body position. Arousals from respiratory events occurred 4.3 times per hour, and oxygen desaturations were seen into the 70s. There was some minor limb activity noted. Two trains of 30 events but the limb movement arousal index was only 5.4. IMPRESSIONS: Obstructive sleep apnea syndrome (G47.33). Apnea-hypopnea index 8.4. RECOMMENDATION: The patient should be encouraged to return to [facility] for [facility]. In the interim, alcohol and sedative avoidance should be practiced and caution exercised during the operation of motor vehicles. cc: Brandy Arcos
== END ==
LOC: M SLEEP 20:00
PROVIDERS: ATTEND Nurse Practitioner Adult Health
DX: G47.33 Obstructive sleep apnea (adult) (pediatric) (principal)

== ENCOUNTER 2021-01-28 08:04 | Outpatient (CLI) | payer MEDICARE, MEDICAID ==
[~2021-01-28] VITALS: Ht 175.3 cm; Wt 118.2 kg
[~2021-01-28 08:04] MED LIST changes: +ALBUTEROL 90 MCG/ACT 8GM HFA INHALER INH PRN; +ALBUTEROL SULFATE 2.5 MG/0.5 ML INH NEB SOLN INH PRN; -DICY20TA11 PO; +DICY20TA20 PO; +EPINEPHrine INJ 1 MG/ML 1ML AMP IM PRN; -MONT10TA10 PO; +MONT10TA97 PO; +NS 1,000 ML IV SCH; +diphenhydrAMINE 50MG/ML VIAL (J1200) IV PRN; +methylPREDNISolone 125MG 2ML VIAL IV PRN
[2021-01-28] MEDS ORDERED: ACETAMINOPHEN TAB 650MG DOSE (2X325MG) PO ONE (08:30)
[2021-01-28] MEDS ORDERED: CASIRIVIMAB (REGN10933) 600 MG, IMDEVIMAB (REGN10987) 600 MG in NS 250 ML IV ONE (08:30)
[2021-01-28 08:34] VITALS: BP 152/85
[2021-01-28 09:04] VITALS: BP 137/72
[2021-01-28 09:34] VITALS: BP 127/64
[2021-01-28 10:34] VITALS: BP 132/72
== END 2021-01-28 10:34 | disposition home or self-care (01) ==
LOC: M OPCLI4PR 08:04
PROVIDERS: ATTEND Physician Assistant
DX: U07.1 COVID-19 (principal); Z88.0 Allergy status to penicillin; Z88.8 Allergy status to other drugs, medicaments and biological substances

== ENCOUNTER → 2021-02-09 | Outpatient (CLI) | payer MEDICARE, MEDICAID ==
[~2021-02-09] MED LIST changes: -ALBUTEROL 90 MCG/ACT 8GM HFA INHALER INH PRN; -ALBUTEROL SULFATE 2.5 MG/0.5 ML INH NEB SOLN INH PRN; +DICY20TA11 PO; -DICY20TA20 PO; -EPINEPHrine INJ 1 MG/ML 1ML AMP IM PRN; +MONT10TA10 PO; -MONT10TA97 PO; -NS 1,000 ML IV SCH; -diphenhydrAMINE 50MG/ML VIAL (J1200) IV PRN; -methylPREDNISolone 125MG 2ML VIAL IV PRN
--- NOTE | 2021-02-09 12:08 | REP ---
INDICATION: SHORTNESS OF BREATH COMPARISON: 10/20/2020. TECHNIQUE: PA/Lateral FINDINGS: Lungs: Clear, no infiltrate. Heart: There is mild cardiomegaly. Mediastinum: Mediastinal silhouette unremarkable. Pleural angles: Unremarkable.. Bones and soft tissues: Unremarkable. IMPRESSION: No acute pulmonary disease. <Electronically signed by Julio César Deng > 02/09/21 [id number]
== END ==
LOC: M RAD 11:30
PROVIDERS: ATTEND Nurse Practitioner Adult Health
DX: R06.02 Shortness of breath (principal)

== ENCOUNTER → 2021-04-13 | Outpatient (CLI) | payer MEDICARE, MEDICAID ==
[~2021-04-13] MED LIST changes: -DICY20TA11 PO; +DICY20TA20 PO; +ISOVUE-370 76% 100ML VIAL ONE; -MONT10TA10 PO; +MONT10TA97 PO
== END ==
LOC: M PLAIMG 09:54
PROVIDERS: ATTEND Physician Assistant
DX: R79.89 Other specified abnormal findings of blood chemistry (principal)
CPT/HCPCS: 70460; Q9967

== ENCOUNTER → 2021-07-22 | Outpatient (CLI) | payer MEDICARE, MEDICAID ==
[~2021-07-22] MED LIST changes: -ISOVUE-370 76% 100ML VIAL ONE
[2021-07-23 19:09] LABS: TESTOSTERONE FREE (DIRECT) 3.6 pg/mL (6.8-21.5)
== END ==
LOC: M LAB 07:56
PROVIDERS: ATTEND Urology
DX: R79.89 Other specified abnormal findings of blood chemistry (principal)
CPT/HCPCS: 36415; 84402; 84403; G0103

== ENCOUNTER → 2021-10-30 | Outpatient (CLI) | payer MEDICARE, MEDICAID ==
[2021-10-30 11:11] LABS: TOTAL 25(OH) VITAMIN D 21.2 NG/ML (30.0-100.0)
== END ==
LOC: M LAB 09:07
PROVIDERS: ATTEND Physician Assistant
DX: E78.00 Pure hypercholesterolemia, unspecified (principal); E55.9 Vitamin D deficiency, unspecified; Z79.51 Long term (current) use of inhaled steroids; Z79.1 Long term (current) use of non-steroidal anti-inflammatories (NSAID); Z79.899 Other long term (current) drug therapy

== ENCOUNTER → 2021-10-30 | Outpatient (CLI) | payer MEDICARE, MEDICAID ==
[2021-10-30 10:10] LABS: HEMATOCRIT 41.3 % (42.0-52.0); HEMOGLOBIN 14.1 g/dl (13.5-17.5); MEAN CORPUSCULAR HEMOGLOBIN 29.1 pg (27.0-33.0); MEAN CORPUSCULAR HGB CONC 34.1 g/dl (32.0-36.5); MEAN CORPUSCULAR VOLUME 85.3 fl (80.0-96.0); PLATELET COUNT, AUTOMATED 204 10^3/uL (150-450); RED BLOOD COUNT 4.84 10^6/uL (4.30-6.10); WHITE BLOOD COUNT 8.5 10^3/uL (4.0-10.0)
[2021-10-30 10:49] LABS: ALBUMIN 3.7 GM/DL (3.2-5.2); ALT/SGPT 44 U/L (12-78); BILIRUBIN,TOTAL 0.3 MG/DL (0.2-1.0); BLOOD UREA NITROGEN 15 MG/DL (7-18); CALCIUM LEVEL 9.1 MG/DL (8.5-10.1); CARBON DIOXIDE LEVEL 27 MEQ/L (21-32); CHLORIDE LEVEL 106 MEQ/L (98-107); CREATININE FOR GFR 0.89 MG/DL (0.70-1.30); GLOMERULAR FILTRATION RATE > 60.0 (>60); GLUCOSE, FASTING 104 MG/DL (70-100); POTASSIUM SERUM 3.7 MEQ/L (3.5-5.1); SODIUM LEVEL 137 MEQ/L (136-145); TOTAL PROTEIN 7.5 GM/DL (6.4-8.2)
[2021-10-31 19:07] LABS: TESTOSTERONE FREE (DIRECT) 7.2 pg/mL (6.8-21.5)
== END ==
LOC: M LAB 09:14
PROVIDERS: ATTEND Urology
DX: R79.89 Other specified abnormal findings of blood chemistry (principal); E78.00 Pure hypercholesterolemia, unspecified; E55.9 Vitamin D deficiency, unspecified; Z79.51 Long term (current) use of inhaled steroids; Z79.1 Long term (current) use of non-steroidal anti-inflammatories (NSAID); Z79.899 Other long term (current) drug therapy

== ENCOUNTER → 2021-12-28 | Outpatient (REF) | payer MEDICARE, MEDICAID | LOC: M LAB REF 17:22 | PROVIDERS: ATTEND Physician Assistant | DX: L91.8 Other hypertrophic disorders of the skin (principal); R20.9 Unspecified disturbances of skin sensation ==

== ENCOUNTER → 2022-01-01 | Outpatient (CLI) | payer MEDICARE, MEDICAID | LOC: M SLEEP 20:00 | PROVIDERS: ATTEND Nurse Practitioner Adult Health | DX: G47.33 Obstructive sleep apnea (adult) (pediatric) (principal) ==

== ENCOUNTER 2022-01-26 12:43 | Emergency (ER) | payer MEDICARE, MEDICAID ==
[~2022-01-26] VITALS: Ht 175.3 cm; Wt 89.5 kg
[2022-01-26 12:44] VITALS: BP 140/80
[2022-01-26] MEDS ORDERED: SUMA25TA3 (13:29)
[2022-01-26] MEDS ORDERED: TEST1.62 (13:29)
== END 2022-01-26 14:52 | disposition left against medical advice (07) ==
LOC: M ED 12:43
DX: Z53.21 Procedure and treatment not carried out due to patient leaving prior to being seen by health care provider (principal)

== ENCOUNTER → 2022-01-27 | Outpatient (CLI) | payer MEDICARE, MEDICAID ==
[~2022-01-27] MED LIST changes: +SUMA25TA3; +TEST1.62
[2022-01-27 09:46] LABS: HEMATOCRIT 44.8 % (42.0-52.0); HEMOGLOBIN 14.7 g/dl (13.5-17.5); MEAN CORPUSCULAR HEMOGLOBIN 28.7 pg (27.0-33.0); MEAN CORPUSCULAR HGB CONC 32.8 g/dl (32.0-36.5); MEAN CORPUSCULAR VOLUME 87.3 fl (80.0-96.0); PLATELET COUNT, AUTOMATED 229 10^3/uL (150-450); RED BLOOD COUNT 5.13 10^6/uL (4.30-6.10); WHITE BLOOD COUNT 9.1 10^3/uL (4.0-10.0)
[2022-01-27 11:09] LABS: ALBUMIN 3.9 G/DL (3.2-5.2); ALT/SGPT 45 U/L (7.0-40); BILIRUBIN,TOTAL 0.6 MG/DL (0.3-1.2); BLOOD UREA NITROGEN 13 MG/DL (9-23); CALCIUM LEVEL 9.3 MG/DL (8.5-10.1); CARBON DIOXIDE LEVEL 27 MMOL/L (20-31); CHLORIDE LEVEL 104 MMOL/L (98-107); CREATININE FOR GFR 1.02 MG/DL (0.70-1.30); GLOMERULAR FILTRATION RATE > 60.0 (>60); GLUCOSE, FASTING 105 MG/DL (60-100); POTASSIUM SERUM 4.6 MMOL/L (3.5-5.1); SODIUM LEVEL 140 MMOL/L (136-145); TOTAL PROTEIN 7.2 G/DL (5.7-8.2)
[2022-01-29 16:12] LABS: TESTOSTERONE FREE (DIRECT) 6.7 pg/mL (6.8-21.5)
== END ==
LOC: M LAB 08:58
PROVIDERS: ATTEND Urology
DX: R79.89 Other specified abnormal findings of blood chemistry (principal)

== ENCOUNTER → 2022-03-17 | Outpatient (CLI) | payer MEDICARE, MEDICAID | LOC: M LABSMTC 11:32 | PROVIDERS: ATTEND Anesthesiology | DX: Z01.818 Encounter for other preprocedural examination (principal); Z11.52 Encounter for screening for COVID-19 ==

== ENCOUNTER → 2022-03-25 | Outpatient (CLI) | payer MEDICARE, MEDICAID | LOC: M LABSMTC 09:25 | PROVIDERS: ATTEND Anesthesiology | DX: Z01.812 Encounter for preprocedural laboratory examination (principal); Z11.52 Encounter for screening for COVID-19 ==

== ENCOUNTER 2022-03-30 09:10 | Day surgery (SDC) | payer MEDICARE, MEDICAID ==
[~2022-03-30] VITALS: Ht 175.3 cm; Wt 118.4 kg
[~2022-03-30 09:10] MED LIST changes: +NS 1,000 ML IV ONE
[2022-03-30] MEDS ORDERED: propofoL 200 MG/20 ML VIAL As Ordered ONE ×2 (10:50→11:09)
[2022-03-30] MEDS ORDERED: LIDOCAINE 2% 100MG/5ML SDV (FOR ANES.) As Ordered ONE (10:50)
[2022-03-30 11:45] VITALS: BP 133/78
== END 2022-03-30 11:55 | disposition home or self-care (01) ==
LOC: M OPP 09:10
PROVIDERS: ATTEND Internal Medicine Gastroenterology
DX: D12.6 Benign neoplasm of colon, unspecified (principal); K64.4 Residual hemorrhoidal skin tags; K64.8 Other hemorrhoids; K92.1 Melena; Z79.51 Long term (current) use of inhaled steroids; Z79.52 Long term (current) use of systemic steroids; Z79.899 Other long term (current) drug therapy; Z99.89 Dependence on other enabling machines and devices; Z80.0 Family history of malignant neoplasm of digestive organs; Z88.5 Allergy status to narcotic agent; G47.33 Obstructive sleep apnea (adult) (pediatric); G43.909 Migraine, unspecified, not intractable, without status migrainosus; J45.909 Unspecified asthma, uncomplicated

== ENCOUNTER → 2022-05-21 | Outpatient (CLI) | payer MEDICARE, MEDICAID ==
[~2022-05-21] MED LIST changes: +ADV500INH INH; +ALBU8.5H INH; +AMLO1TAB24 PO; +ASPI81TA26 PO; +FLUTISP; +INCR1INH INH; +MECL-86 PO; +METR0.7526 TOP; -NS 1,000 ML IV ONE; +NYST1POW9 TOP; +OMEP-173 PO; +RISATAB3 PO; +SUMA25TA3 PO; +VITA100093 PO; +VITMTA PO
== END ==
LOC: M LAB 09:11
PROVIDERS: ATTEND Physician Assistant
DX: E55.9 Vitamin D deficiency, unspecified (principal)

== ENCOUNTER → 2022-05-21 | Outpatient (CLI) | payer MEDICARE, MEDICAID ==
[~2022-05-21] MED LIST changes: -ADV500INH INH; -ALBU8.5H INH; -AMLO1TAB24 PO; -ASPI81TA26 PO; -FLUTISP; -INCR1INH INH; -MECL-86 PO; -METR0.7526 TOP; -NYST1POW9 TOP; -OMEP-173 PO; -RISATAB3 PO; -SUMA25TA3 PO; -VITA100093 PO; -VITMTA PO
[2022-05-21 10:38] LABS: ALBUMIN 3.9 G/DL (3.2-5.2); ALKALINE PHOSPHATASE 112 U/L (46-116); ALT/SGPT 40 U/L (7.0-40); AST/SGOT 27 U/L (<34); BILIRUBIN,TOTAL 0.4 MG/DL (0.3-1.2); BLOOD UREA NITROGEN 14 MG/DL (9-23); CALCIUM LEVEL 9.2 MG/DL (8.5-10.1); CARBON DIOXIDE LEVEL 29 MMOL/L (20-31); CHLORIDE LEVEL 105 MMOL/L (98-107); CREATININE FOR GFR 0.94 MG/DL (0.70-1.30); GLOMERULAR FILTRATION RATE > 60.0 (>60); GLUCOSE, FASTING 100 MG/DL (60-100); POTASSIUM SERUM 4.3 MMOL/L (3.5-5.1); SODIUM LEVEL 139 MMOL/L (136-145); TOTAL PROTEIN 7.3 G/DL (5.7-8.2)
[2022-05-22 21:07] LABS: TESTOSTERONE FREE (DIRECT) 7.1 pg/mL (6.8-21.5)
== END ==
LOC: M LAB 09:13
PROVIDERS: ATTEND Urology
DX: R79.89 Other specified abnormal findings of blood chemistry (principal)

== ENCOUNTER 2022-05-25 19:40 | Inpatient (IN) | payer MEDICARE, MEDICAID ==
[~2022-05-25] VITALS: Ht 167.6 cm; Wt 126.2 kg
[2022-05-25] MEDS ORDERED: ISOVUE-370 76% 100ML VIAL As Ordered ONE (19:48)
[2022-05-25 20:35] LABS: BASO # 0.1 10^3/uL (0.0-0.2); BASO % 0.6 % (0.0-1.0); EOS # 0.3 10^3/uL (0.0-0.5); HEMATOCRIT 45.4 % (42.0-52.0); HEMOGLOBIN 14.5 g/dl (13.5-17.5); LYMPH # 2.2 10^3/uL (1.5-5.0); LYMPH % 20.5 % (24.0-44.0); MEAN CORPUSCULAR HGB CONC 31.9 g/dl (32.0-36.5); MEAN CORPUSCULAR VOLUME 87.6 fl (80.0-96.0); MONO # 0.7 10^3/uL (0.0-0.8); MONO % 6.2 % (2.0-8.0); NEUTROPHILS # 7.3 10^3/uL (1.5-8.5); NEUTROPHILS % 69.2 % (36.0-66.0); PLATELET COUNT, AUTOMATED 240 10^3/uL (150-450); RED BLOOD COUNT 5.18 10^6/uL (4.30-6.10); WHITE BLOOD COUNT 10.6 10^3/uL (4.0-10.0)
[2022-05-25 20:45] LABS: INR 0.94; PROTHROMBIN TIME 12.8 SECONDS (12.5-14.5)
[2022-05-25 20:46] LABS: PARTIAL THROMBOPLASTIN TIME 31.5 SECONDS (24.8-34.2)
[2022-05-25 21:07] LABS: CK-MB VALUE MASS < 1.0 NG/ML (<3.6)
[2022-05-25 21:08] LABS: CARBON DIOXIDE LEVEL 27 MMOL/L (20-31); CHLORIDE LEVEL 109 MMOL/L (98-107); POTASSIUM SERUM 4.2 MMOL/L (3.5-5.1); SODIUM LEVEL 147 MMOL/L (136-145)
[2022-05-25 21:13] LABS: BLOOD UREA NITROGEN 19 MG/DL (9-23); CREATININE FOR GFR 1.02 MG/DL (0.70-1.30); GLOMERULAR FILTRATION RATE > 60.0 (>60); GLUCOSE, FASTING 99 MG/DL (60-100)
[2022-05-25 21:16] LABS: CPK CREATINE PHOSPHOKINASE 116 U/L (46-171); MB/CK RELATIVE INDEX 0.86 (< OR =4)
[2022-05-25] MEDS ORDERED: ACETAMINOPHEN TAB 650MG DOSE (2X325MG) PO PRN (23:15)
[2022-05-25 23:16] LABS: RSV AMPLIFICATION NEGATIVE (NEGATIVE)
[2022-05-25 23:51] LABS: CHOLESTEROL LEVEL 180 MG/DL (<200); CHOLESTEROL RISK RATIO 4.19 (<5); HDL CHOLESTEROL 42.9 MG/DL (>40); LDL CHOLESTEROL 94.5 MG/DL (<100); NON-HDL-C 137.1 MG/DL; TRIGLYCERIDES LEVEL 213 MG/DL (<150)
[2022-05-26 00:26] LABS: THYROID STIMULATING HORMONE 2.608 uIU/ML (0.55-4.78)
[2022-05-26] MEDS ORDERED: amLODIPine 5 MG TAB PO ONE (01:00)
[2022-05-26] MEDS ORDERED: **hydrALAZINE** 10 MG TAB PO PRN (02:05)
[2022-05-26 02:14] VITALS: BP 139/88
[2022-05-26] MEDS ORDERED: SUMA25TA3 PO (03:06)
[2022-05-26] MEDS ORDERED: MECL-86 PO (03:06)
[2022-05-26] MEDS ORDERED: NYST1POW9 TOP (03:06)
[2022-05-26] MEDS ORDERED: RISATAB3 PO (03:06)
[2022-05-26] MEDS ORDERED: METR0.7526 TOP (03:06)
[2022-05-26] MEDS ORDERED: MONT10TA97 PO (03:06)
[2022-05-26] MEDS ORDERED: VITA100093 PO (03:06)
[2022-05-26] MEDS ORDERED: ADV500INH INH (03:06)
[2022-05-26] MEDS ORDERED: VITMTA PO (03:06)
[2022-05-26] MEDS ORDERED: INCR1INH INH (03:06)
[2022-05-26] MEDS ORDERED: ALBU8.5H INH (03:06)
[2022-05-26] MEDS ORDERED: OMEP-173 PO (03:06)
[2022-05-26] MEDS ORDERED: FLUTISP (03:06)
[2022-05-26] MEDS ORDERED: HOME MED LIST COMPLETE! XX SCH (03:10)
[2022-05-26 05:40] VITALS: BP 132/67
[2022-05-26 06:13] LABS: HEMATOCRIT 41.5 % (42.0-52.0); HEMOGLOBIN 13.5 g/dl (13.5-17.5); MEAN CORPUSCULAR HEMOGLOBIN 27.7 pg (27.0-33.0); MEAN CORPUSCULAR HGB CONC 32.5 g/dl (32.0-36.5); PLATELET COUNT, AUTOMATED 208 10^3/uL (150-450); RED BLOOD COUNT 4.88 10^6/uL (4.30-6.10); WHITE BLOOD COUNT 7.7 10^3/uL (4.0-10.0)
[2022-05-26 06:38] LABS: BLOOD UREA NITROGEN 15 MG/DL (9-23); CALCIUM LEVEL 8.4 MG/DL (8.5-10.1); CARBON DIOXIDE LEVEL 28 MMOL/L (20-31); CHLORIDE LEVEL 107 MMOL/L (98-107); CREATININE FOR GFR 0.91 MG/DL (0.70-1.30); GLOMERULAR FILTRATION RATE > 60.0 (>60); GLUCOSE, FASTING 117 MG/DL (60-100); MAGNESIUM LEVEL 1.9 MG/DL (1.8-2.4); SODIUM LEVEL 142 MMOL/L (136-145)
[2022-05-26 08:09] LABS: HEMOGLOBIN A1c 5.6 % (4.0-6.0)
[2022-05-26] MEDS ORDERED: MECLIZINE 25 MG TABLET PO PRN (08:45)
[2022-05-26] MEDS ORDERED: NYSTATIN 100,000 UNITS/GM TOPICAL PWD 15GM TOP PRN (08:45)
[2022-05-26] MEDS ORDERED: ALBUTEROL 90 MCG/ACT 8GM HFA INHALER INH PRN (08:45)
[2022-05-26] MEDS ORDERED: LACTOBACILLUS ACIDOPHILUS CAP (BACID) PO SCH (09:00)
[2022-05-26] MEDS ORDERED: MONTELUKAST 10 MG TAB PO SCH (09:00)
[2022-05-26] MEDS ORDERED: OMEPRAZOLE 20MG CAP PO SCH (09:00)
[2022-05-26] MEDS ORDERED: ATORVASTATIN 20 MG TAB PO SCH (09:00)
[2022-05-26] MEDS ORDERED: ADVAIR HFA 230/21MCG INHALER INH SCH (09:00)
[2022-05-26] MEDS ORDERED: ENOXAPARIN 40MG/0.4ML SYRINGE (J1650 PER 10MG) SC SCH (09:00)
[2022-05-26] MEDS ORDERED: metroNIDAZOLE 70GM VAGINAL GEL TOP SCH (09:00)
[2022-05-26] MEDS ORDERED: MULTIVITAMINS/MINERALS THERAP 1 TAB PO SCH (09:00)
[2022-05-26] MEDS ORDERED: VITAMIN D 1,000 INTERNATIONAL UNITS TABLET PO SCH (09:00)
[2022-05-26] MEDS ORDERED: FLUTICASONE PROP 0.05% NASAL SPRAY 16 GM (FLONASE) SCH (09:00)
[2022-05-26] MEDS ORDERED: ASPIRIN 325 MG TAB PO ONE (10:05)
[2022-05-26] MEDS ORDERED: AMLO1TAB24 PO (12:31)
[2022-05-26] MEDS ORDERED: amLODIPine 5 MG TAB PO SCH (13:00)
[2022-05-26 13:28] VITALS: BP 130/76
[2022-05-26] MEDS ORDERED: ASPI81TA26 PO (14:34)
[2022-05-26] MEDS ORDERED: rOPINIRole 1MG TAB PO SCH (21:00)
== END 2022-05-26 14:31 | disposition home or self-care (01) | DRG 103 ==
LOC: M ED 19:40 → M ED INP 23:13 → M MSPAV 05-26 00:40
PROVIDERS: ADMIT Internal Medicine; ATTEND Internal Medicine
DX: G43.109 Migraine with aura, not intractable, without status migrainosus (principal); Z68.41 Body mass index [BMI] 40.0-44.9, adult; J45.909 Unspecified asthma, uncomplicated; G47.33 Obstructive sleep apnea (adult) (pediatric); K21.9 Gastro-esophageal reflux disease without esophagitis; F32.A Depression, unspecified; F41.9 Anxiety disorder, unspecified; L40.9 Psoriasis, unspecified; R47.1 Dysarthria and anarthria; E66.9 Obesity, unspecified; I10 Essential (primary) hypertension; R47.81 Slurred speech; Z79.899 Other long term (current) drug therapy; Z88.0 Allergy status to penicillin; Z79.1 Long term (current) use of non-steroidal anti-inflammatories (NSAID); Z88.8 Allergy status to other drugs, medicaments and biological substances; Z86.16 Personal history of COVID-19

== ENCOUNTER → 2022-06-16 | Outpatient (CLI) | payer MEDICARE, MEDICAID ==
[~2022-06-16] MED LIST changes: +ADV500INH INH; +ALBU8.5H INH; +AMLO1TAB24 PO; +ASPI81TA26 PO; +FLUT50SP17; +INCR1INH INH; +MECL-86 PO; +METR0.7526 TOP; +NYST1POW9 TOP; +OMEP-173 PO; +RISATAB3 PO; +SUMA25TA3 PO; +VITA100093 PO; +VITMTA PO
== END ==
LOC: M RAD 08:16
PROVIDERS: ATTEND Physician Assistant
DX: M54.16 Radiculopathy, lumbar region (principal)

== ENCOUNTER 2022-06-28 12:50 | Outpatient (RCR) | payer MEDICARE, MEDICAID | END 2022-07-04 | LOC: M PT 12:50 | PROVIDERS: ATTEND Physician Assistant | DX: M54.16 Radiculopathy, lumbar region (principal); M79.604 Pain in right leg; M79.605 Pain in left leg ==

== ENCOUNTER 2022-08-03 13:45 | Outpatient (RCR) | payer MEDICARE, MEDICAID | END 2022-08-04 | LOC: M PT 13:45 | PROVIDERS: ATTEND Physician Assistant | DX: M54.16 Radiculopathy, lumbar region (principal); M79.604 Pain in right leg; M79.605 Pain in left leg ==

== ENCOUNTER → 2022-08-03 | Outpatient (REF) | payer MEDICARE, MEDICAID | LOC: M LABSMT 13:35 | PROVIDERS: ATTEND Urology | DX: E29.1 Testicular hypofunction (principal) ==

== ENCOUNTER 2022-08-26 14:24 | Outpatient (RCR) | payer MEDICARE, MEDICAID | END 2022-09-03 | LOC: M PT 14:24 | PROVIDERS: ATTEND Physician Assistant | DX: M54.16 Radiculopathy, lumbar region (principal) ==

== ENCOUNTER → 2023-01-18 | Outpatient (CLI) | payer MEDICARE, MEDICAID ==
[~2023-01-18] MED LIST changes: -ROPI1TAB3 PO; +ROPI1TAB73 PO
[2023-01-18 09:08] LABS: HEMATOCRIT 42.5 % (42.0-52.0); HEMOGLOBIN 14.2 g/dl (13.5-17.5); MEAN CORPUSCULAR HEMOGLOBIN 28.7 pg (27.0-33.0); MEAN CORPUSCULAR HGB CONC 33.4 g/dl (32.0-36.5); MEAN CORPUSCULAR VOLUME 85.9 fl (80.0-96.0); PLATELET COUNT, AUTOMATED 214 10^3/uL (150-450); RED BLOOD COUNT 4.95 10^6/uL (4.30-6.10); WHITE BLOOD COUNT 8.7 10^3/uL (4.0-10.0)
[2023-01-18 09:34] LABS: ALBUMIN 3.7 G/DL (3.2-5.2); ALKALINE PHOSPHATASE 118 U/L (46-116); ALT/SGPT 43 U/L (7.0-40); AST/SGOT 31 U/L (<34); BILIRUBIN,TOTAL 0.5 MG/DL (0.3-1.2); BLOOD UREA NITROGEN 13 MG/DL (9-23); CARBON DIOXIDE LEVEL 29 MMOL/L (20-31); CHLORIDE LEVEL 107 MMOL/L (98-107); CREATININE FOR GFR 0.82 MG/DL (0.70-1.30); GLOMERULAR FILTRATION RATE > 60.0 (>60); GLUCOSE, FASTING 107 MG/DL (60-100); POTASSIUM SERUM 4.3 MMOL/L (3.5-5.1); SODIUM LEVEL 144 MMOL/L (136-145)
[2023-01-19 18:07] LABS: TESTOSTERONE FREE (DIRECT) 4.3 pg/mL (6.8-21.5)
== END ==
LOC: M LAB 08:44
PROVIDERS: ATTEND Urology
DX: E29.1 Testicular hypofunction (principal)

== ENCOUNTER 2023-02-04 14:28 | Emergency (ER) | payer MEDICARE, MEDICAID ==
[~2023-02-04] VITALS: Ht 175.3 cm; Wt 120.5 kg
[~2023-02-04 14:28] MED LIST changes: -FLUT50SP17; +FLUTISP
[2023-02-04] MEDS ORDERED: diphenhydrAMINE 50MG/ML VIAL IV STA (15:04)
[2023-02-04] MEDS ORDERED: KETOROLAC 30 MG/ML 1ML VIAL IV ONE (15:05)
[2023-02-04] MEDS ORDERED: METOCLOPRAMIDE INJ 10MG/2ML VIAL IV ONE (15:05)
[2023-02-04] MEDS ORDERED: NS 1,000 ML IV ONE (15:05)
[2023-02-04 18:08] VITALS: BP 117/56; TEMP 99.2; O2SAT 97
== END 2023-02-04 18:10 | disposition home or self-care (01) ==
LOC: M ED 14:28
DX: G43.909 Migraine, unspecified, not intractable, without status migrainosus (principal); Z86.73 Personal history of transient ischemic attack (TIA), and cerebral infarction without residual deficits; G47.33 Obstructive sleep apnea (adult) (pediatric); J45.909 Unspecified asthma, uncomplicated; Z88.0 Allergy status to penicillin; Z87.891 Personal history of nicotine dependence; Z79.51 Long term (current) use of inhaled steroids; Z79.82 Long term (current) use of aspirin; Z79.899 Other long term (current) drug therapy
CPT/HCPCS: 96361; 96374; 96375; 99284; J1200; J1885; J2765

== ENCOUNTER → 2023-02-24 | Outpatient (REF) | payer MEDICARE, MEDICAID ==
[2023-02-24 14:30] LABS: HEMOGLOBIN A1c 5.2 % (4.0-6.0)
[2023-02-24 14:43] LABS: ALBUMIN 3.7 G/DL (3.2-5.2); ALKALINE PHOSPHATASE 117 U/L (46-116); ALT/SGPT 37 U/L (7.0-40); AST/SGOT 19 U/L (<34); BILIRUBIN,TOTAL 0.3 MG/DL (0.3-1.2); BLOOD UREA NITROGEN 17 MG/DL (9-23); CALCIUM LEVEL 8.8 MG/DL (8.5-10.1); CARBON DIOXIDE LEVEL 27 MMOL/L (20-31); CHLORIDE LEVEL 107 MMOL/L (98-107); CHOLESTEROL LEVEL 154 MG/DL (<200); CHOLESTEROL RISK RATIO 3.29 (<5); CREATININE FOR GFR 0.92 MG/DL (0.70-1.30); GLOMERULAR FILTRATION RATE > 60.0 (>60); GLUCOSE, FASTING 93 MG/DL (60-100); HDL CHOLESTEROL 46.7 MG/DL (>40); LDL CHOLESTEROL 88.5 MG/DL (<100); NON-HDL-C 107.3 MG/DL; POTASSIUM SERUM 4.2 MMOL/L (3.5-5.1); SODIUM LEVEL 142 MMOL/L (136-145); THYROID STIMULATING HORMONE 2.762 uIU/ML (0.55-4.78); TOTAL 25(OH) VITAMIN D 42.8 NG/ML (20.0-100.0); TOTAL PROTEIN 6.9 G/DL (5.7-8.2); TRIGLYCERIDES LEVEL 94 MG/DL (<150)
[2023-02-24 14:44] LABS: FREE T4 1.02 NG/DL (0.89-1.76)
== END ==
LOC: M LAB REF 12:16
PROVIDERS: ATTEND Nurse Practitioner Family
DX: I10 Essential (primary) hypertension (principal); E55.9 Vitamin D deficiency, unspecified; R73.01 Impaired fasting glucose; E78.00 Pure hypercholesterolemia, unspecified

== ENCOUNTER → 2023-04-15 | Outpatient (REF) | payer MEDICARE, MEDICAID | LOC: M SMT 13:27 | PROVIDERS: ATTEND Urology | DX: N48.29 Other inflammatory disorders of penis (principal) ==

== ENCOUNTER → 2023-06-09 | Outpatient (CLI) | payer MEDICARE, MEDICAID ==
[2023-06-09 10:04] LABS: HEMATOCRIT 43.4 % (42.0-52.0); HEMOGLOBIN 14.5 g/dl (13.5-17.5); MEAN CORPUSCULAR HEMOGLOBIN 28.6 pg (27.0-33.0); MEAN CORPUSCULAR HGB CONC 33.4 g/dl (32.0-36.5); MEAN CORPUSCULAR VOLUME 85.6 fl (80.0-96.0); PLATELET COUNT, AUTOMATED 227 10^3/uL (150-450); RED BLOOD COUNT 5.07 10^6/uL (4.30-6.10)
[2023-06-09 10:32] LABS: ALBUMIN 3.6 G/DL (3.2-5.2); ALKALINE PHOSPHATASE 132 U/L (46-116); ALT/SGPT 40 U/L (7.0-40); AST/SGOT 30 U/L (<34); BILIRUBIN,TOTAL 0.5 MG/DL (0.3-1.2); BLOOD UREA NITROGEN 13 MG/DL (9-23); CARBON DIOXIDE LEVEL 24 MMOL/L (20-31); CHLORIDE LEVEL 110 MMOL/L (98-107); CREATININE FOR GFR 0.94 MG/DL (0.70-1.30); GLOMERULAR FILTRATION RATE > 60.0 (>56); GLUCOSE, FASTING 99 MG/DL (60-100); SODIUM LEVEL 139 MMOL/L (136-145); TOTAL PROTEIN 6.9 G/DL (5.7-8.2)
== END ==
LOC: M LAB 08:57
PROVIDERS: ATTEND Urology
DX: E29.1 Testicular hypofunction (principal)

== ENCOUNTER → 2023-06-09 | Outpatient (CLI) | payer MEDICARE, MEDICAID | LOC: M RAD 08:53 | PROVIDERS: ATTEND Nurse Practitioner Adult Health | DX: R07.9 Chest pain, unspecified (principal) ==

== ENCOUNTER → 2023-07-06 | Outpatient (CLI) | payer MEDICARE, MEDICAID | LOC: M RAD 12:36 | PROVIDERS: ATTEND Nurse Practitioner Adult Health | DX: R07.9 Chest pain, unspecified (principal) ==

== ENCOUNTER → 2023-08-23 | Outpatient (REF) | payer MEDICARE, MEDICAID | LOC: M LABSMT 11:39 | PROVIDERS: ATTEND Urology | DX: E29.1 Testicular hypofunction (principal) ==

== ENCOUNTER 2023-09-19 19:56 | Emergency (ER) | payer MEDICARE, MEDICAID ==
[~2023-09-19] VITALS: Ht 175.3 cm; Wt 121.5 kg
[2023-09-19 20:44] LABS: HEMATOCRIT 45.4 % (42.0-52.0); HEMOGLOBIN 15.1 g/dl (13.5-17.5); MEAN CORPUSCULAR HEMOGLOBIN 28.7 pg (27.0-33.0); MEAN CORPUSCULAR HGB CONC 33.3 g/dl (32.0-36.5); MEAN CORPUSCULAR VOLUME 86.1 fl (80.0-96.0); PLATELET COUNT, AUTOMATED 240 10^3/uL (150-450); RED BLOOD COUNT 5.27 10^6/uL (4.30-6.10); WHITE BLOOD COUNT 13.3 10^3/uL (4.0-10.0)
[2023-09-19 21:09] LABS: AMPHETAMINES LEVEL URINE NEGATIVE (NEGATIVE); BARBITURATES URINE NEGATIVE (NEGATIVE); BENZODIAZEPINES URINE NEGATIVE (NEGATIVE); COCAINE METABOLITE URINE NEGATIVE (NEGATIVE); METHADONE URINE NEGATIVE (NEGATIVE)
[2023-09-19 21:10] LABS: CANNABINOIDS URINE NEGATIVE (NEGATIVE); OPIATES URINE NEGATIVE (NEGATIVE); PHENCYCLIDINE URINE NEGATIVE (NEGATIVE)
[2023-09-19 21:11] LABS: ETHYL ALCOHOL (ETHANOL) < 0.003 % (0.000-0.010)
[2023-09-19 21:13] LABS: ALBUMIN 4.1 G/DL (3.2-5.2); ALKALINE PHOSPHATASE 171 U/L (46-116); ALT/SGPT 56 U/L (7.0-40); AST/SGOT 32 U/L (<34); BILIRUBIN,DIRECT 0.1 MG/DL (<0.4); BILIRUBIN,TOTAL 0.5 MG/DL (0.3-1.2); BLOOD UREA NITROGEN 14 MG/DL (9-23); CALCIUM LEVEL 9.5 MG/DL (8.5-10.1); CARBON DIOXIDE LEVEL 26 MMOL/L (20-31); CHLORIDE LEVEL 107 MMOL/L (98-107); CREATININE FOR GFR 0.91 MG/DL (0.70-1.30); GLOMERULAR FILTRATION RATE > 60.0 (>56); GLUCOSE, FASTING 83 MG/DL (60-100); POTASSIUM SERUM 4.1 MMOL/L (3.5-5.1); SALICYLATE LEVEL < 3.0 MG/DL (<30); SODIUM LEVEL 142 MMOL/L (136-145); TOTAL PROTEIN 7.4 G/DL (5.7-8.2)
[2023-09-20 00:20] VITALS: BP 145/78; TEMP 97.5; O2SAT 99
== END 2023-09-20 00:51 | disposition home or self-care (01) ==
LOC: M ED 19:56
DX: F43.0 Acute stress reaction (principal); Z88.0 Allergy status to penicillin; Z88.8 Allergy status to other drugs, medicaments and biological substances; Z79.51 Long term (current) use of inhaled steroids; Z79.1 Long term (current) use of non-steroidal anti-inflammatories (NSAID); Z79.810 Long term (current) use of selective estrogen receptor modulators (SERMs); Z79.899 Other long term (current) drug therapy

== ENCOUNTER → 2023-10-21 | Outpatient (REF) | payer MEDICARE, MEDICAID ==
[2023-10-21 11:20] LABS: APPEARANCE, URINE CLEAR (CLEAR); BACTERIA, URINE AUTO NEGATIVE (NEGATIVE); BILIRUBIN, URINE AUTO NEGATIVE (NEGATIVE); BLOOD, URINE BLOOD NEGATIVE (NEGATIVE); COLOR, URINE COLORLESS (YELLOW); GLUCOSE, URINE (UA) AUTO NEGATIVE (NEGATIVE); KETONE, URINE AUTO NEGATIVE (NEGATIVE); LEUKOCYTE ESTERASE, URINE AUTO NEGATIVE (NEGATIVE); NITRITE, URINE AUTO NEGATIVE (NEGATIVE); PROTEIN, URINE AUTO NEGATIVE (NEGATIVE); RBC, URINE AUTO 0 /HPF (0-3); SPECIFIC GRAVITY URINE AUTO 1.002 (1.002-1.035); SQUAMOUS EPITHELIAL CELL UR AU 0 /HPF (0-6); UROBILINOGEN, URINE AUTO 0.2 mg/dL (0.0-2.0); WBC, URINE AUTO 0 /HPF (0-3)
== END ==
LOC: M SMT 09:55
PROVIDERS: ATTEND Urology
DX: R31.0 Gross hematuria (principal)

== ENCOUNTER → 2023-11-14 | Outpatient (CLI) | payer MEDICARE, MEDICAID ==
[~2023-11-14] MED LIST changes: +ISOVUE-370 76% 100ML VIAL As Ordered ONE
== END ==
LOC: M RAD 12:53
PROVIDERS: ATTEND Urology
DX: R31.0 Gross hematuria (principal); K76.0 Fatty (change of) liver, not elsewhere classified; N20.0 Calculus of kidney; N28.1 Cyst of kidney, acquired
CPT/HCPCS: 74178; Q9967

== ENCOUNTER 2024-02-11 12:27 | Emergency (ER) | payer MEDICARE, MEDICAID ==
[~2024-02-11] VITALS: Ht 175.3 cm; Wt 122.6 kg
[~2024-02-11 12:27] MED LIST changes: -ISOVUE-370 76% 100ML VIAL As Ordered ONE; +NYST1POW3 TOP; -NYST1POW9 TOP
[2024-02-11 14:53] VITALS: BP 135/78; TEMP 97.3; O2SAT 98
== END 2024-02-11 14:53 | disposition home or self-care (01) ==
LOC: M ED 12:27
DX: S20.212A Contusion of left front wall of thorax, initial encounter (principal); S50.02XA Contusion of left elbow, initial encounter; Y92.019 Unspecified place in single-family (private) house as the place of occurrence of the external cause; Y93.9 Activity, unspecified; Y99.9 Unspecified external cause status; W00.0XXA Fall on same level due to ice and snow, initial encounter; I10 Essential (primary) hypertension; Z88.0 Allergy status to penicillin; Z88.8 Allergy status to other drugs, medicaments and biological substances; Z91.041 Radiographic dye allergy status; Z79.51 Long term (current) use of inhaled steroids; Z79.1 Long term (current) use of non-steroidal anti-inflammatories (NSAID); Z79.810 Long term (current) use of selective estrogen receptor modulators (SERMs); Z79.899 Other long term (current) drug therapy

== ENCOUNTER → 2024-02-20 | Outpatient (REF) | payer MEDICARE, MEDICAID ==
[2024-02-20 14:32] LABS: HEMATOCRIT 42.8 % (42.0-52.0); HEMOGLOBIN 14.4 g/dl (13.5-17.5); MEAN CORPUSCULAR HEMOGLOBIN 29.1 pg (27.0-33.0); MEAN CORPUSCULAR HGB CONC 33.6 g/dl (32.0-36.5); MEAN CORPUSCULAR VOLUME 86.5 fl (80.0-96.0); PLATELET COUNT, AUTOMATED 202 10^3/uL (150-450); RED BLOOD COUNT 4.95 10^6/uL (4.30-6.10); WHITE BLOOD COUNT 7.1 10^3/uL (4.0-10.0)
[2024-02-20 14:49] LABS: HEMOGLOBIN A1c 5.2 % (4.0-6.0)
[2024-02-20 14:58] LABS: ALBUMIN 3.6 G/DL (3.2-5.2); ALKALINE PHOSPHATASE 128 U/L (40-129); ALT/SGPT 41 U/L (7.0-40); AST/SGOT 33 U/L (<34); BILIRUBIN,TOTAL 0.3 MG/DL (0.3-1.2); BLOOD UREA NITROGEN 13 MG/DL (9-23); CALCIUM LEVEL 9.2 MG/DL (8.5-10.1); CARBON DIOXIDE LEVEL 28 MMOL/L (20-31); CHLORIDE LEVEL 107 MMOL/L (98-107); CHOLESTEROL LEVEL 172 MG/DL (<200); CHOLESTEROL RISK RATIO 3.68 (<5); CREATININE FOR GFR 0.92 MG/DL (0.70-1.30); GLOMERULAR FILTRATION RATE > 60.0 (>56); GLUCOSE, FASTING 97 MG/DL (60-100); HDL CHOLESTEROL 46.7 MG/DL (>40); LDL CHOLESTEROL 98.9 MG/DL (<100); NON-HDL-C 125.3 MG/DL; POTASSIUM SERUM 4.8 MMOL/L (3.5-5.1); SODIUM LEVEL 144 MMOL/L (136-145); TOTAL PROTEIN 6.8 G/DL (5.7-8.2); TRIGLYCERIDES LEVEL 132 MG/DL (<150)
[2024-02-20 15:01] LABS: TOTAL 25(OH) VITAMIN D 34.4 NG/ML (20.0-100.0)
== END ==
LOC: M LAB REF 13:38
PROVIDERS: ATTEND Physician Assistant
DX: R73.01 Impaired fasting glucose (principal); E66.9 Obesity, unspecified; E55.9 Vitamin D deficiency, unspecified; J45.20 Mild intermittent asthma, uncomplicated

== ENCOUNTER → 2024-06-15 | Outpatient (REF) | payer MEDICARE, MEDICAID ==
[~2024-06-15] MED LIST changes: -ADV500INH INH; +ADVA1AER10 INH
[2024-06-15 16:24] LABS: APPEARANCE, URINE CLEAR (CLEAR); BACTERIA, URINE AUTO 1+ (NEGATIVE); BILIRUBIN, URINE AUTO NEGATIVE (NEGATIVE); BLOOD, URINE BLOOD 2+ (NEGATIVE); COLOR, URINE STRAW (YELLOW); GLUCOSE, URINE (UA) AUTO NEGATIVE (NEGATIVE); KETONE, URINE AUTO NEGATIVE (NEGATIVE); LEUKOCYTE ESTERASE, URINE AUTO 3+ (NEGATIVE); MUCUS, URINE SMALL (NEGATIVE); NITRITE, URINE AUTO NEGATIVE (NEGATIVE); PROTEIN, URINE AUTO NEGATIVE (NEGATIVE); RBC, URINE AUTO 1 /HPF (0-3); SPECIFIC GRAVITY URINE AUTO 1.002 (1.002-1.035); SQUAMOUS EPITHELIAL CELL UR AU 0 /HPF (0-6); UROBILINOGEN, URINE AUTO 0.2 mg/dL (0.0-2.0); WBC, URINE AUTO 9 /HPF (0-3)
== END ==
LOC: M SMT 15:44
PROVIDERS: ATTEND Urology
DX: R39.9 Unspecified symptoms and signs involving the genitourinary system (principal)

== ENCOUNTER → 2024-09-28 | Outpatient (REF) | payer MEDICARE, MEDICAID ==
[~2024-09-28] MED LIST changes: -DEPA250T32 PO; +DIVA-65 PO
[2024-09-28 13:58] LABS: APPEARANCE, URINE CLEAR (CLEAR); BACTERIA, URINE AUTO NEGATIVE (NEGATIVE); BILIRUBIN, URINE AUTO NEGATIVE (NEGATIVE); BLOOD, URINE BLOOD NEGATIVE (NEGATIVE); GLUCOSE, URINE (UA) AUTO NEGATIVE (NEGATIVE); KETONE, URINE AUTO NEGATIVE (NEGATIVE); LEUKOCYTE ESTERASE, URINE AUTO NEGATIVE (NEGATIVE); NITRITE, URINE AUTO NEGATIVE (NEGATIVE); PROTEIN, URINE AUTO NEGATIVE (NEGATIVE); RBC, URINE AUTO 0 /HPF (0-3); SPECIFIC GRAVITY URINE AUTO 1.005 (1.002-1.035); SQUAMOUS EPITHELIAL CELL UR AU 0 /HPF (0-6); UROBILINOGEN, URINE AUTO 0.2 mg/dL (0.0-2.0); WBC, URINE AUTO 0 /HPF (0-3)
== END ==
LOC: M SMT 12:58
PROVIDERS: ATTEND Urology
DX: Z87.440 Personal history of urinary (tract) infections (principal)

== ENCOUNTER → 2024-10-08 | Outpatient (REF) | payer MEDICARE, MEDICAID ==
[2024-10-08 18:22] LABS: CALCIUM LEVEL 8.9 MG/DL (8.5-10.1); CARBON DIOXIDE LEVEL 27 MMOL/L (20-31); CHLORIDE LEVEL 109 MMOL/L (98-107); CREATININE FOR GFR 0.90 MG/DL (0.70-1.30); GLOMERULAR FILTRATION RATE > 90.0 (>56); POTASSIUM SERUM 4.5 MMOL/L (3.5-5.1); SODIUM LEVEL 145 MMOL/L (136-145)
== END ==
LOC: M LAB REF 17:29
PROVIDERS: ATTEND Physician Assistant
DX: I10 Essential (primary) hypertension (principal); K64.4 Residual hemorrhoidal skin tags; K64.8 Other hemorrhoids